=== PATIENT | male | born 1980 ===

== ENCOUNTER → 2023-05-18 | Day surgery (SDC) | payer OTHER ==
[~2023-05-18] VITALS: Ht 177.8 cm; Wt 79.4 kg
[~2023-05-18] MED LIST: AVAPRO150 MG PO; BUPIVACAINE LIPOSOME/PF 266 MG/20 ML VIAL IJ ONE; CEFTRIAXONE SODIUM 2,000 MG VIAL IV ONE; CEFTRIAXONE SODIUM 2,000 MG VIAL ONE; DIBUCAINE 15 GM OINT..GM. TUBE RECTAL ONE; DIBUCAINE 30 GM TUBE ONE; HEMOSTATIC MATRIX 1 KIT KIT TOP ONE; METRONIDAZOLE/SODIUM CHLORIDE 500 MG/100 ML PIGGYBACK IV ONE; NEURONTIN300 MG PO; NEXIUM 24HR20 MG PO; ONDANSETRON HCL 2 MG/ML VIAL ONE; OXYMETAZOLINE HCL 15 ML NASAL DROPS NASAL ONE; POVIDONE-IODINE 118 ML BOTT TOP ONE; TRAM1TAB98 PO
== END | disposition home or self-care (01) ==
LOC: CIR.AMB 09:30
PROVIDERS: ATTEND Surgery
DX: K64.2 Third degree hemorrhoids (principal); K64.8 Other hemorrhoids; K62.5 Hemorrhage of anus and rectum; Z20.822 Contact with and (suspected) exposure to COVID-19; I10 Essential (primary) hypertension